=== PATIENT | female | born 1970 | race Caucasian/White ===

== ENCOUNTER 2025-03-01 01:28 | Outpatient (CLI) | payer MEDICAID, SELFPAY ==
[2025-03-01 13:52] LABS: HCT 41.2 % (36.0-46.0); HGB 13.9 g/dL (11.2-15.7); MCH 29.6 pg (27.0-33.0); MCHC 33.7 % (32.0-36.0); MCV 88 fL (80-95); MPV 9.5 fL (8.0-11.0); Platelet Count 379 10^3/uL (130-400); RBC 4.69 10^6/uL (3.93-5.22); RDW 13.7 % (11.7-14.6); RDW-SD 43.7 fL; WBC 7.36 10^3/uL (4.4-10.8)
[2025-03-01 14:27] LABS: Anion Gap 9.7 mmol/L (3-11); BUN 13 mg/dL (7-18); CO2 28.3 mmol/L (21.0-32.0); CREATININE 0.7 mg/dL (0.55-1.02); Calcium 9.4 mg/dL (8.5-10.1); Chloride 102 mmol/L (98-107); Estimated GFR 102.07 (mL/min/1.73m2); Glucose 155 mg/dL (74-106); Potassium 3.6 mmol/L (3.5-5.1); Sodium 140 mmol/L (136-145)
[2025-03-05 15:33] LABS: Fructosamine 240 mcmol/L (200 - 285)
== END 2025-03-01 01:29 | disposition home or self-care (01) ==
LOC: LBO 01:28
PROVIDERS: PCP Internal Medicine; Visit Provider Student in an Organized Health Care Education/Training Program
DX: M17.11 Unilateral primary osteoarthritis, right knee (principal); Z01.818 Encounter for other preprocedural examination; E11.9 Type 2 diabetes mellitus without complications
CPT/HCPCS: 36415; 80048; 85027; 82985

== ENCOUNTER 2025-03-01 12:05 | Outpatient (CLI) | payer MEDICAID, SELFPAY ==
--- NOTE | 2025-03-01 11:45 | DI.RAD_ITS ---
Exam(s) XR STANDING ALIGNMENT XR KNEE RT 1V EXAM: XR STANDING ALIGNMENT and XR knee RT 1 V CLINICAL HISTORY: PRE OP R TKA. TECHNIQUE: 2D digital imaging was performed. Five images were obtained. COMPARISON: CR XR KNEE COMPLETE MIN 4V BILAT-M2 from 12/20/2023 CR XR KNEE 1 OR 2V BILAT-M2 from 03/01/2024 CR XR KNEE 3V RT from 03/05/2024 FINDINGS: BONES: The hips are well maintained. In the right knee, there is marked narrowing of the medial femo ral tibial joint. There osteophytes in all 3 joint compartments, particularly the medial femoral tib ial and patellofemoral joint. There is no significant joint effusion. The tibia is slightly lateral ly subluxed relative to the distal femur. On the lateral view, there is a rounded density anterior t o the tibial plateau which may represent a loose body. In the left knee, there is moderate narrowing of the medial femoral tibial joint. Osteophytes are seen both medially and laterally. The ankles a re well maintained.There is no significant leg length discrepancy. SOFT TISSUE: Normal. IMPRESSION: Marked osteoarthritis of the knees, right greater than left. DATA REPOSITORY: RADIATION DOSE DELIVERED:
== END 2025-03-01 12:06 | disposition home or self-care (01) ==
LOC: DIORS 12:06
PROVIDERS: PCP Internal Medicine; Visit Provider Physician Assistant
DX: M17.11 Unilateral primary osteoarthritis, right knee (principal); M17.12 Unilateral primary osteoarthritis, left knee
CPT/HCPCS: 73560; 77073

== ENCOUNTER 2025-03-12 08:35 | Day surgery (SDC) | payer MEDICAID, SELFPAY ==
[2025-03-12] VITALS (21 sets, daily range): BP systolic 104–159; BP diastolic 35–92; PULSE 58–83; RESP 10–21; TEMP 36.2–36.6; O2SAT 92–98; BMI 35.5
--- NOTE | 2025-03-12 07:13 | PDOC.DSDIS_ITS ---
Date of service: 03/12/25 Discharge Plan Disposition Patient Disposition: Home Condition: Good Discharge Details Reason For Visit: Right knee DJD Attending Provider: Keyon Hgih Primary Care Provider: Adina Moya Home Meds and New Rx's Prescriptions: New celecoxib [Celebrex] 200 mg capsule 200 mg PO BID PRNQty: 60 0RF Rx Instructions: Take one tablet twice daily for pain and inflammation aspirin 81 mg tablet,delayed release (DR/EC) 81 mg PO BID 30 Days Qty: 60 0RF acetaminophen 500 mg tablet 1,000 mg PO Q8H PRN Qty: 90 0RF Rx Instructions: Take two tablets up to every 8 hours as needed for pain hydromorphone 2 mg tablet 2 mg PO Q4H PRNQty: 18 0RF Rx Instructions: Take one tablet up to every 4 hours as needed for severe postoperative pain dexamethasone 4 mg tablet 4 mg PO DAILY Qty: 2 0RF Rx Instructions: Take one tablet once daily for two days docusate sodium [Colace] 100 mg capsule 100 mg PO BID Qty: 28 0RF Continued diltiazem HCl [DILT-XR] 120 mg capsule,ext.rel 24h degradable 120 mg PO DAILY escitalopram oxalate 10 mg tablet 10 mg PO DAILY alprazolam 1 mg tablet 1 mg PO QID PRN cholecalciferol (vitamin D3) 25 mcg (1,000 unit) capsule 25 mcg PO DAILY clotrimazole 1 % cream 1 applic topical BID ferrous sulfate 325 mg (65 mg iron) tablet 325 mg PO DAILY Arnuity Ellipta 100 mcg/actuation blister with device 1 inh inhalation DAILY metformin 500 mg tablet 500 mg PO BID omeprazole 20 mg capsule,delayed release(DR/EC) 20 mg PO DAILY cyanocobalamin (vitamin B-12) 1,000 mcg capsule 1,000 mcg PO DAILY Anoro Ellipta 62.5-25 mcg/actuation blister with device 1 inh inhalation DAILY (DME) Medial Offloader Brace See Rx Instructions .Route .MEDSUPPLY Qty: 1 0RF Rx Instructions: As directed gabapentin 300 mg capsule 600 mg PO TID magnesium 250 mg tablet 500 mg PO DAILY Collagen 1500 Plus C 500 mg-800 mcg- 50 mg capsule 1 cap PO DAILY Discharge Instructions Additional Instructions: Total Knee Discharge Instructions Activity: The most important activity is to walk and to work on gentle motion (both flexion and extension). You should try to take short walks a few times a day. It is important that when resting you work on keeping the knee straight. Avoid putting a pillow behind the knee as this will encourage flexion. Work on range of motion exercises as provided by Physical Therapy. - Start outpatient physical therapy within 2 weeks. - You should wear the BRAD hose on both legs for 2 weeks. You may remove these at night. You may also use any compression sock in place of the BRAD hose. - Utilize [employer] to review exercises, see videos on exercises and obtain basic information pertaining to your surgery and your recovery. Dressing: Remove the Jasiel wrap by 2 days after your surgery and put on the BRAD stocking given to you from the hospital. Keep the surgical dressing (underneath the JASIEL wrap) in place for at least one week. After the first week it may be removed and replaced with light gauze and tape or nothing. The wound and dressing may get wet after 3 days but avoid soaking the dressing or otherwise it will need to be changed. Many people prefer covering the dressing with cling wrap (saran wrap) to minimize it from getting soaked. If it gets wet, just pat dry. If it starts to peel off then it will need to be changed. Medications: - You should take Tylenol and anti-inflammatory Celebrex as your primary pain control medications. If the Celebrex is too expensive or not covered, please call the office for another alternative (Advil/Ibuprofen or Naproxen/Aleve) - You have been prescribed a stronger pain medication Hydromorphone for breakthrough pain, take as needed as prescribed. - You take a stomach acid reduction agent Omeprazole at baseline continue with this medication to help reduce stomach acid and reflux. - You will be taking Aspirin 81mg twice a day for DVT prevention unless instructed otherwise. - You have also been prescribed Decadron to take to control post-operative nausea and pain. You will start this tomorrow. - If you have constipation you should take Colace (which has been prescribed) or Miralax (which is available [id number]). It takes most people 3-4 days to have a bowel movement. Follow-up: 2 weeks If you have any acute concerns or questions, please do not hesitate to contact the office at [phone]. You may contact Dr. High with any questions after hours through the hospital at [phone] or on his cell phone at [phone]. Stand Alone Forms: Anesthesia Discharge Inst., [place].Nerve Block Instructions, Josefina Glynn ([facility]) Referrals: Keyon High MD [ [facility] STAFF PHYSICIAN] - 03/25/25 11:00 am Equipment/Supplies: Walker Activity:: Elevate Remove Dressings/Wound Care:: Do Not Remove Shower/Bathe:: Cover Diet:: As Tolerated Discharge Orders Discharge Orders: Discharge Order (Routine); Ordered 03/12/25 Ordered By: Felipa Sands
--- NOTE | 2025-03-12 09:06 | W.ANESPRE ---
General Info Date of Service Date Performed: 03/12/25 Height: 5 ft 5.5 in Weight: 98.43 kg Body Mass Index (BMI): 35.5 Surgical Procedure: Operation Date: 03/12/25 10:40 Proposed Procedure Side Surgeon p Knee Total Arthroplasty Right Keyon High MD Meds Allergies and Home Medications Allergies Allergy/AdvReac Type Severity Reaction Status Date / Time oxycodone AdvReac Intermediate Unknown Verified 03/12/25 09:13 Home Medication ?Medication ?Instructions ?Recorded alprazolam 1 mg tablet 1 mg PO QID PRN 01/16/24 cholecalciferol (vitamin D3) 25 25 mcg PO DAILY 01/16/24 mcg (1,000 unit) capsule clotrimazole 1 % topical cream 1 applic topical BID 01/16/24 cyanocobalamin (vitamin B-12) 1,000 mcg PO DAILY 01/16/24 1,000 mcg capsule ferrous sulfate 325 mg (65 mg 325 mg PO DAILY 01/16/24 iron) tablet fluticasone furoate 100 1 inh inhalation DAILY 01/16/24 mcg/actuation blister powder for inhalation (Arnuity Ellipta) metformin 500 mg tablet 500 mg PO BID 01/16/24 omeprazole 20 mg capsule,delayed 20 mg PO DAILY 01/16/24 release umeclidinium 62.5 mcg-vilanterol 1 inh inhalation DAILY 01/16/24 25 mcg/actuation powdr for inhalation (Anoro Ellipta) diltiazem HCl 120 mg 120 mg PO DAILY 01/19/24 capsule,extended release 24 hr, controlled (DILT-XR) Medial Offloader Brace #1 ea 01/23/25 escitalopram oxalate 10 mg tablet 10 mg PO DAILY 03/01/25 gabapentin 300 mg capsule 600 mg PO TID 03/01/25 magnesium 250 mg tablet 500 mg PO DAILY 03/01/25 collagen,hydrolysate 500 mg-biotin 1 cap PO DAILY 03/11/25 800 mcg-ascorbic acid 50 mg capsule (Collagen 1500 Plus C) acetaminophen 500 mg tablet 1,000 mg (2 x 500 mg) PO Q8H PRN 03/12/25 pain #90 tabs aspirin 81 mg tablet,delayed 81 mg PO BID 30 days #60 tabs 03/12/25 release celecoxib 200 mg capsule (Celebrex) 200 mg PO BID PRN #60 caps 03/12/25 dexamethasone 4 mg tablet 4 mg PO DAILY #2 tabs 03/12/25 docusate sodium 100 mg capsule 100 mg PO BID #28 caps 03/12/25 (Colace) hydromorphone 2 mg tablet 2 mg PO Q4H PRN #18 tabs 03/12/25 Current Visit Medications: Current Medications Generic Name Dose Route Start Last Admin Trade Name Freq PRN Reason Stop Dose Admin Acetaminophen 1,000 mg 03/12/25 06:00 Acetaminophen 500 Mg Tab PO 03/12/25 23:59 PREOP PENELOPE Celecoxib 400 mg 03/12/25 06:00 Celecoxib 200 Mg Cap PO 03/12/25 23:59 PREOP PENELOPE Gabapentin 300 mg 03/12/25 06:00 Gabapentin 300 Mg Cap PO 03/12/25 23:59 PREOP PENELOPE Hydromorphone HCl 0.5 mg 03/12/25 07:11 Hydromorphone 2 Mg/Ml Syr IVP 04/11/25 07:10 Q2H PRN PRN Ringer's Solution 1,000 mls @ 80 mls/hr 03/12/25 06:00 IV 03/12/25 23:59 INFUSION PENELOPE Cefazolin Sodium/Dextrose 2 gm in 50 mls @ 100 mls/hr 03/12/25 06:00 Ancef Duplex IVPB 03/12/25 23:59 PREOP PENELOPE Tranexamic Acid/Sodium Chloride 1,000 mg in 100 mls @ 600 mls/hr 03/12/25 06:00 IVPB 03/12/25 23:59 PREOP PENELOPE Cefazolin Sodium/Dextrose 1 gm in 50 mls @ 100 mls/hr 03/12/25 08:00 Ancef Duplex IVPB 04/11/25 07:59 Q8H PENELOPE IV Miscellaneous Supplies 1 each 03/12/25 06:00 Iv Access IV 03/12/25 23:59 DIRECTED PENELOPE Sodium Chloride 0 ml 03/12/25 06:00 Normal Saline Flush 10 Ml Syr IV 03/12/25 23:59 PRN PRN Sodium Chloride 0 ml 03/12/25 06:00 Normal Saline 10 Ml Vial IJ 03/12/25 23:59 DIRECTED PRN Sterile Water 0 ml 03/12/25 06:00 Water,Injection,Sterile 10 Ml Vial IJ 03/12/25 23:59 DIRECTED PRN Tranexamic Acid 1,300 mg 03/12/25 07:11 Tranexamic Acid 650 Mg Tab PO 04/11/25 07:10 ONCE PRN postoperative PFSH Active Problems Active Problems: Problem Status Onset Code History of total right knee replacement Acute 03/12/25 Z96.651 Osteoarthritis of right knee Acute M17.11 Asthma Chronic J45.909 Type 2 diabetes mellitus Acute E11.9 Skin lesion of chest wall Acute L98.9 Sleep apnea, obstructive Chronic G47.33 Obesity Chronic E66.9 Nocturnal hypoxemia Acute G47.34 Neck pain Acute M54.2 Migraine Chronic G43.909 Marijuana use Acute F12.90 Joint pain of ankle and foot Acute M25.579 Isthmic spondylolisthesis Acute M43.10 Insomnia Acute G47.00 Herpes simplex Acute B00.9 Generalized anxiety disorder Acute F41.1 Gastroesophageal reflux disease with hiatal hernia Acute K21.9, K44.9 Dyspnea Acute R06.00 Chronic diarrhea Acute K52.9 Backache Acute M54.9 ADHD Acute F90.9 Anxiety disorder Acute F41.9 Allergy to nuts Acute Z91.018 Abnormal weight gain Acute R63.5 Medical History Medical History (Updated 03/12/25 @ 09:45 by Venkat Sarah CRNA) Surgical History Surgical History Hx of section 11/22/06 History of esophagogastroduodenoscopy (EGD) 11/02/21,10/20/20 History of colonoscopy 11/02/21 Tobacco Smoking/Tobacco Use Status: Former Tobacco Use Alcohol Alcohol Intake: current Alcohol intake frequency: a few times a month Substance Use Substance use: Never Substance use type: former substance user and marijuana Vital Signs and Lab Results Vital Signs Most Recent Vital Signs in EMR: Most Recent Vital Signs Temp Pulse Resp BP Pulse Ox 36.5 C 76 16 135/83 98 03/12/25 08:46 03/12/25 08:46 03/12/25 08:46 03/12/25 08:46 03/12/25 08:46 Lab Results Blood Type / Crossmatch: No Data to Display Complete Blood Count: White Blood Count 7.36 10^3/uL (4.4-10.8) 03/01/25 13:37 Red Blood Count 4.69 10^6/uL (3.93-5.22) 03/01/25 13:37 Hemoglobin 13.9 g/dL (11.2-15.7) 03/01/25 13:37 Hematocrit 41.2 % (36.0-46.0) 03/01/25 13:37 Platelet Count 379 10^3/uL (130-400) 03/01/25 13:37 Complete Metabolic Panel: Sodium 140 mmol/L (136-145) 03/01/25 13:37 Potassium 3.6 mmol/L (3.5-5.1) 03/01/25 13:37 Chloride 102 mmol/L (98-107) 03/01/25 13:37 Carbon Dioxide 28.3 mmol/L (21.0-32.0) 03/01/25 13:37 BUN 13 mg/dL (7-18) 03/01/25 13:37 Creatinine 0.7 mg/dL (0.55-1.02) 03/01/25 13:37 Est GFR (CKD-EPI 2020) 102.07 (mL/min/1.73m2) 03/01/25 13:37 Calcium 9.4 mg/dL (8.5-10.1) 03/01/25 13:37 Glucose 155 mg/dL (74-106) H 03/01/25 13:37 Liver Function Panel: No Data to Display Coagulation Panel: No Data to Display Cardiac Panel: No Data to Display Arterial Blood Gas: No Data to Display Venous Blood Gas: No Data to Display Pancreas Panel: No Data to Display Thyroid Panel: No Data to Display Infectious Disease: No Data to Display Blood Cultures: No Data to Display Toxicology Panel: No Data to Display Anesthesia Assessment and Plan Anesthesia History Personal History: No History of Anesthesia Complications Family History: No Family History of Anesthesia Complications Exercise Tolerance Exercise Tolerance: Metabolic Equivalents>4 Pertinent Negatives Pertinent Negatives: No Symptoms of GERD, No Major Cardiovascular Symptoms or Complaints and No History of CVA/TIA Cardiac & Pulmonary Exam Cardiac Exam: Normal S1/S2 Heart Sounds Pulmonary Exam: Clear Bilateral Breath Sounds Implantable Cardiac Device Does patient have a Pacemaker or an ICD?: No Airway Exam Known Difficult Airway: No Mallampati Class: 2 Mouth Opening: Normal (> 3cm) Thyromental Distance: Greater than 3 cm Neck Range of Motion: Full ROM Neck Circumference: Normal Teeth Condition: Normal Dentition ASA Classification ASA Score: ASA 2 Emergency Case?: No NPO Status NPO Status: NPO Clears >2 hours, Solids >8 hours Anesthesia Plan Resuscitation Status: Full Code Anesthesia Technique: Spinal Anesthesia Airway Planned: Natural Airway Pain Management: Surgeon and patient request nerve block Monitors Used: Standard Monitors
[2025-03-12] MEDS: Gabapentin 300 MG CAP PO (09:22)
[2025-03-12] MEDS: Celecoxib 200 MG CAP 400 MG PO (09:22)
[2025-03-12] MEDS: ceFAZolin 2 GM/50 ML BAG IVPB (10:29)
[2025-03-12] MEDS: Lactated Ringers 1,000 ML 80 ML IV (10:29)
[2025-03-12] MEDS: TRANEXAMIC ACID/SOD. CHL. 1,000 MG/100 ML BAG 600 MG IVPB (10:40)
--- NOTE | 2025-03-12 10:43 | W.PM.OP ---
Operative Note Operative Note PRE-OP DIAGNOSIS: Right Knee Osteoarthritis POST-OP DIAGNOSIS: same PROCEDURE: Right Total Knee Replacement SURGEON: Keyno High SHAPER SET UP OPERATOR: Felipa Sands ANESTHESIA TYPE: Spinal Refer to Anesthesia Record ESTIMATED BLOOD LOSS: 100 PATHOLOGY: none sent TOURNIQUET TIME: 0 COMPLICATIONS: None Patient was transported to: PACU Patient's condition: stable Implants: 1. Depuy Attune Cementless Cruciate Retaining Femoral Component, Size 5 2. Depuy Attune Cementless Fixed Bearing Tibial Component, Size 4 3. Depuy Attune 5x7mm CR/FB Poly Indications: I have seen Bere in clinic for symptoms of knee arthritis, confirmed with radiographic findings. [NAME] has exhausted nonoperative methods and was having significant limitations in daily function and desired better function and less pain. I discussed the technical details of a knee replacement. I explained the risks of the procedure to include, but not limited to, bleeding, infection, pain, stiffness, fracture, damage to nerves and vessels, damage to muscles and tendons, loosening, need for repeat procedure, blood clot and cardiopulmonary demise. Despite these risks, [NAME] elected to proceed. Findings: There was significant signs of arthritis throughout the knee. Procedure Description: Bere was greeted in the preoperative holding area where the correct side was identified and marked. The consent was reviewed with the patient and signed. The history and physical was updated. All questions were answered. Preoperative medications were administered: Acetaminophen 1000mg, Celebrex 400mg, and Gabapentin 300mg. An adductor canal block was then administered by the anesthesia team in the [facility]. She was taken back to the operating room. A spinal anesthestic was then administered. The patient was placed into the supine position on the operating room table. Posts were placed for positioning during the procedure. All bony prominences were well padded. Prophylactic antibiotics in the form of Cefazolin were administered. 1g of Tranxemic Acid was given intravenously within 30 minutes of incision. The left leg was then prepped with Chloraprep and draped in a standard fashion with impervious stockinette. A second prep with Chloraprep was performed prior to application of Iodine impregnated skin protection. A timeout to confirm correct identity, side and site, procedure, allergies, anesthesia, and medical concerns was performed. With the knee in some flexion, a midline incision was made overlying the knee. Full thickness skin flaps were raised once the extensor mechanism was encountered. These were raised medially and laterally. Any bleeding was controlled with electrocautery. Once the extensor mechanism was fully exposed, a medial parapatellar arthrotomy was performed in a flexed position. All bleeding from the arthrotomy and the geniculate arteries was coagulated. A medial subperiosteal peel was performed with electrocautery to the midcoronal plane. The fat pad was removed while keeping the patellar tendon protected. The anterior distal femur synovium was removed for later visualization. The ACL and PCL were resected and the anterior horn of the lateral meniscus was transected. The knee was then flexed with the patella everted. Large osteophytes from the tibia were removed. Large osteophytes from the femur were removed. Using a step drill, and based on preoperative templating, the femoral canal was entered. This was done with a step drill without any difficulty. The intramedullary distal femoral cut guide was inserted, set to a 5 degree valgus cut and 9mm cut thickness. The distal femoral cut guide was then held in position and pinned. With the soft tissues protected, the distal cut was performed. This was passed over a few times to ensure a planar cut. I then turned attention to the tibia. The extramedullary guide was placed onto the leg. The distal aspect was slid medial to adjust for position of center of ankle and stay in line with shaft of the tibia. Approximately 3-5 degrees of posterior slope was kept in the proximal cutting guide. The center of the guide was aligned with the PCL. The stylus was used to assess cut thickness. The medial side, most involved side, was set for a 4mm cut. This was then held in position and pinned into place with 2 additional pins and a cross pin for stability. The medial and lateral collateral ligaments were protected and the cut was performed. With this completed, it was assessed and noted to be of appropriate dimensions. The guide was removed. A spacer block was inserted and the knee was brought into extension. The 6mm spacer block provided full extension, without hyperextension and with stability of both the medial and lateral collateral ligaments was assessed. The pins from the femur and the tibia were then removed. The distal femur was then sized. The anterior stylus was placed onto the lateral ridge of the anterior femur. This indicated a size 5 femur. The external rotation of the guide was adjusted to 3 degrees to match the epicondylar axis, perpendicular to Luebbering?s line. The 4-in-1 cutting guide was the placed. The posterior medial femur cut was evaluated and appeared of good thickness. The spacer block was inserted underneath the cutting guide and stability was confirmed in 90 degrees of flexion. An heber wing was used to confirm appropriate position of the anterior cut to avoid notching. This cutting guide was ensured to be flush on the cut surface and then pinned into place with headed pins. While protecting the soft tissues, quad tendon, and collateral ligaments, the anterior and posterior cuts were performed with a saw. The central two pins were removed and the posterior and anterior chamfers were cut next. The notch-cutting guide was placed. This was pinned to lateralize the femoral component as much as possible while keeping it flush on the cut surface. This was then pinned into position. A reciprocating saw was used to make the notch cut. A rasp smoothed the cut surfaces. The medial and lateral menisci were removed. A trial femoral component was then inserted, impacted down to the cut surfaces, and the lug holes were drilled. A provisional trial tibial component was placed and the knee was brought through range of motion. There was no significant instability. The polyethylene was trialed until there was good flexion and extension with excellent stability to the medial and lateral collaterals. The patella was tracking without thumbs. A size 7mm polyethylene component provided the best range of motion and stability with less than 2mm gapping with medial and lateral stress and full extension without significant hyperextension. The tibial cut surface was fully exposed. The tibia was then sized as a 4. The tibia had been previously marked during trialing to correspond to the center of the tibial component to help with rotation. The trial was aligned to this antonella, approximately rotated to the medial 1/3rd of the tibial tubercle. The trial was pinned into place. The tibia was prepared with a reamer and a keel punch and lug holes. The trial components were removed. The final components were opened on the back table. The periosteal and capsular tissues, especially posteriorly, around the knee were then systematically injected with a periarticular cocktail consisting of 246mg of Ropivacaine, 0.5mg of Epinephrine, 0.08mg of Clonidine, and 30mg of Ketorolac, diluted to 100cc. On the back table, with the implants opened. The cementless knee components were placed. Starting with the tibial component, the tibia was subluxed anteriorly and the lug holes of the component were lined up. The tibia was then impacted with an impactor and mallet until the tibial component was in contact with the tibia. The final polyethylene component was inserted. Then, the femoral component was inserted. The lug holes were aligned and the component was impacted into position. The knee was irrigated with Surgiphor Betadine solution. This was allowed to sit in the knee for 3 minutes and then it was irrigated out with saline. I then also performed a synovectomy around the patella removing any osteophytes from the periphery of the patella. A subtle lateral facetectomy was also performed. The patella was tracking with a no-thumbs technique. The capsule was then reapproximated with a No. 1 Vicryl at multiple locations. The capsule was finally closed with a No. 2 Stratafix, barbed suture. Deep tissues were then reapproximated with 0 Vicryl and 2-0 Vicryl. The skin was closed with a running 3-0 Monocryl in a subcuticular fashion. This was reinforced with skin glue. A Mepilex silver dressing was applied along with a [id number] HAZEL wrap. A CryoCuff was applied. Bere was transferred to the hospital bed without difficulty an suffering no apparent complication. She has a good prognosis. Physical therapy will start today and without restrictions, weight-bearing as tolerated. Aspirin 81mg BID will be used for DVT prophylaxis. Date of Procedure: 03/12/25
--- NOTE | 2025-03-12 11:04 | W.ANESNERVE ---
Nerve Block Single Injection Procedure Date and Time Date Performed: 03/12/25 Procedure Start: 10:19 Location Where Procedure Performed Procedure Location: Day Surgery Unit Reason Performed: Postoperative Analgesia Requesting Provider: Keyon High Timeout Performed Timeout Performed: Yes Monitoring Used ECG, Blood Pressure, SpO2 and See EMR for corresponding vital signs Sterility Sterility: Hand Hygiene, Surgical Cap, Surgical Mask, Sterile Gloves and Chlorhexidine Sedation Given During Procedure Sedation Given (Indicate Dose Given): Versed IV Dose:: 2mg Patient Mental Status Patient Mental Status: Awake Nerve Block 1st Nerve Block: Laterality: Right Block Type: Adductor Canal Ultrasound Image Saved?: Yes Needle / Catheter Used: 100mm SonoPlex II Local Anesthetic Bolus (Indicate Dose Given): Lidocaine used for local infiltration of skin, Injected in 3-5ml increments after negative blood aspiration, Bupivacaine 0.25% Dose:: 10ml and Exparel Dose:: 10ml Additives (Indicate Dose Given): None Ultrasound: Sterile probe cover and gel used Nerve Stimulator: Not Used Paresthesia: None Procedure Tolerated: No Complications and Patient tolerated well Procedure Outcome: Successful Performed By: Venkat Sarah
[2025-03-12] MEDS: HYDROmorphone 2 MG TAB PO (13:48)
[2025-03-12] MEDS: Tranexamic Acid 650 MG TAB 1300 MG PO (13:49)
--- NOTE | 2025-03-12 13:50 | IN_ITS ---
PT Notes Visit Reasons: Right knee DJD Physical Therapy Day Surgery Initial Evaluation Date: 03/12/2025 Referring Doctor: JANINE Eastman PT Orders: PT CONSULT: S/p Ortho surgery Precautions: WBAT through right LE with AD. Patient Profile/Admitting Diagnosis: Bere is a 54-year-old female with degenerative joint disease of the right knee and is status post right total knee arthroplasty on postoperative day 0. PMHX: All Active Problems (Updated 06/18/24 @ 15:56 by JANINE Montesinos) Osteoarthritis of right knee (Acute) Asthma (Chronic) Type 2 diabetes mellitus (Acute) Skin lesion of chest wall (Acute) Sleep apnea, obstructive (Chronic) Obesity (Chronic) Nocturnal hypoxemia (Acute) Neck pain (Acute) Migraine (Chronic) Marijuana use (Acute) Joint pain of ankle and foot (Acute) Isthmic spondylolisthesis (Acute) Insomnia (Acute) Herpes simplex (Acute) Generalized anxiety disorder (Acute) Gastroesophageal reflux disease with hiatal hernia (Acute) Dyspnea (Acute) Chronic diarrhea (Acute) Backache (Acute) ADHD (Acute) Anxiety disorder (Acute) Allergy to nuts (Acute) Abnormal weight gain (Acute) Medical History (Updated 06/18/24 @ 15:56 by JANINE Montesinos) Histroy of Surgical History (Updated 01/16/24 @ 08:27 by Valerie Rueda) Hx of section 11/22/06 History of esophagogastroduodenoscopy (EGD) 11/02/21,10/20/20 History of colonoscopy 11/02/21 Social History/Home Situation: Lives alone on the third floor of an apartment building. Independent with all aspects of ADLs prior to surgery. Will live at SONIA's house for the next two weeks and will have support of SONIA Nickerson as she recovers home. Equipment Owned/DME: None Subjective: Needed to void urine when PT came in. Was initially impulsive but with redirection/instrcution was able to safely complete mobility tasks. Denied headche, chest pain, and lightheadedness throughout session. Objective: General Observation: Jasiel wraps to right LE. Cryo/Cuff to right knee. TEDS to left leg and foot. SO Krishan present in room throughout. Mental Status: A and O x 4 Pain: 2-3/10 at rest, 4-5/10 with weight bearing ROM: Right Lower Extremity: Hip flexion WFL. Hip abduction WFL. Knee flexion 10 degrees to 100 knee extension -10 degrees. Degrees. Ankle dorsiflexion WFL. Ankle plantarflexion WFL. Left Lower Extremity: Hip flexion WFL. Hip abduction WFL. Knee flexion WFL. Ankle dorsiflexion WFL. Ankle plantarflexion WFL. Strength: Right Lower Extremity: Hip flexors 4-/5. Hip abductors 4-/5. Knee flexors 3-/5. Knee extensors 3-/5. Ankle dorsiflexors 5/5. Ankle plantarflexors 5/5. Left Lower Extremity:Hip flexors 5/5. Hip abductors 5/5. Knee flexors 5/5. Knee extensors 5/5. Ankle dorsiflexors 5/5. Ankle plantarflexors 5/5. Sensation: Intact as to pain and light pressure in B LE Bed Mobility/Transfers: Minimal verbal cueing provided for use of B hands as needed for support, movement sequence, AD management, and posture to reduce fall risk and minimize pain report Sit to stand stand by assist with FWW Stand to sit stand by assist with FWW Bed to chair stand by assist with FWW Gait: Facilitate safe and correct performance of patient covering a distance of 100 feet using front with reciprocal heel toe swing through gait pattern requiring only standby assist and minimal verbal cueing for correct gait pattern posture, and AD management to minimize pain reported reduce fall risk. Stairs: Guided patient with safe and correct negotiation of 2 x 6 inch steps of 3 x 4 inch steps with bilateral rails with step to gait pattern requiring contact- guard assist while holding bilateral rails with verbal cueing provided for mehran ect sequence, placement, and posture to minimize pain reported reduce fall risk. Follow-up Balance: Static Sitting: Normal Dynamic Sitting: Good Static Standing: Fair Dynamic Standing: Fair Special Tests: Mobility Limitations Standardized Measure [facility] AM-PAC 6 clicks Basic Mobility Inpatient Short Form: Raw Score: 23 CMS Score: 11% deficit Informed Consent/Education: Patient instructed in purpose of PT consult. Packet containing TKA exercise protocol has been given to patient. Education and training on initial set of exercises that can be done at home have been completed with patient. Trained patient with correct performance of exercises below to maximize motor control, joint flexibility, soft tissue extensibility of the R knee musculature: Access Code: [email or web address] URL: [email or web address] Date: 03/12/2025 Prepared by: Talita Pacheco Exercises - Supine Quad Set - 1 x daily - 7 x weekly - 1 sets - 10 reps - 5 hold - Supine Heel Slide - 1 x daily - 7 x weekly - 1 sets - 10 reps - 5 hold - Supine Ankle Pumps - 1 x daily - 7 x weekly - 1 sets - 10 reps - 5 hold - Small Range Straight Leg Raise - 1 x daily - 7 x weekly - 1 sets - 10 reps - 5 hold - Seated March - 1 x daily - 7 x weekly - 1 sets - 10 reps - 5 hold Assessment: Patient requires the use of a front wheeled walker for all mobility ADL performance to maximize independence and reduce fall risk. Patient presents with clinical signs and symptoms consistent with current/admitting diagnoses that have resulted to mobility limitations, gait instability, generalized weakness, and impairment of motor control as demonstrated by the following impairment level findings: 1. Decreased strength to R knee major muscle groups 2. Impaired standing balance 3. Limitation of joint range of motion in R knee Impairments are contributing to the following functional limitations: 1. Inability to safely ambulate without assistive device 2. Increase completion time for mobility ADL performance 3. Increased fall risk Patient is assessed as a 46184 moderate complexity based on the following: History: 54-year-old female with impairment level findings, functional limitations, and past medical history as indicated above Examination: Demonstrable impairment in strength, balance, and mobility level with underlying impairments and functional limitations as documented above Presentation: Evolving Decision Makin moderate complexity Goals: N/A. PT evaluation and 1-2 treatment sessions only for functional mobility training using recommended AD and for HEP instruction. Plan of Care/Treatment Plan: N/A. PT evaluation and 1-2 treatment session only for functional mobility training using recommended AD and for HEP instruction. DISCHARGE RECOMMENDATIONS: [] TREATMENT CODE/TIME: 52063 x 20 minutes for 1 unit, 44692 x 14 minutes for 1 unit (13;50-14:24). Thank you for the opportunity to participate in the care of this patient. Please sign an return this page within 30 days if you agree with the above POC. Thank you! Physician Signature Date [facility] Talita Pacheco PT, DPT, CLT [facility] [place], [place]
--- NOTE | 2025-03-12 14:13 | W.ANESPOSTOP ---
Postoperative Evaluation Date, Time and Location Date Performed: 03/12/25 Time Performed: 14:14 Patient Location: Day Surgery Unit Vital Signs Most Recent Imported Vital Signs: Most Recent Vital Signs Temp Pulse Resp BP Pulse Ox 36.6 C 83 16 142/92 H 96 03/12/25 13:27 03/12/25 13:27 03/12/25 13:27 03/12/25 13:27 03/12/25 13:27 Pain Score Most Recent Pain Score: Most Recent Pain Score Pain Level 2 03/12/25 13:27 Assessment Mental Status: Awake (Alert & Oriented to Patient Baseline) Airway and Respiratory Function: Patent airway with normal (patient baseline) respiratory exam Cardiovascular Function: Hemodynamically Stable Hydration Status: Adequately Hydrated Nausea & Vomiting: No Nausea or Vomiting Pain: Pain is tolerable per patient Peripheral Nerve Block: Regional nerve block not resolved at time of post operative discharge
== END 2025-03-12 15:25 | disposition home or self-care (01) ==
LOC: SUR 08:38
PROVIDERS: PCP Internal Medicine; Visit Provider Student in an Organized Health Care Education/Training Program
PROC: (CPT 27447; principal; 2025-03-12 10:30)
DX: M17.11 Unilateral primary osteoarthritis, right knee (principal); G89.18 Other acute postprocedural pain
CPT/HCPCS: 27447; 64447; 81025; 97162; 97530; C1776; J0665; J0666; J0690; J1100; J2250; J2401; J2405; J2704

== ENCOUNTER 2025-03-25 11:07 | Outpatient (CLI) | payer MEDICAID, SELFPAY ==
--- NOTE | 2025-03-25 10:45 | DI.RAD_ITS ---
Exam(s) XR STANDING ALIGNMENT XR KNEE RT 1V EXAM: XR STANDING ALIGNMENT and XR knee RT 1 V CLINICAL HISTORY: 1ST POST OP S/P RTKA. TECHNIQUE: 2D digital imaging was performed. Five images were obtained. COMPARISON: CR XR STANDING ALIGNMENT from 03/01/2025 CR XR KNEE RT 1V from 03/01/2025 FINDINGS: BONES: The hips are well maintained. The patient is now status post right total knee arthroplasty. The orthopedic hardware appears in good position. No suspicious lucencies are seen around the orthopedic hardware. In the left knee, there is moderate narrowing of the medial femoral tibial joint. Osteophytes are seen both medially and laterally. The ankles are well maintained.There is no significant leg length discrepancy. SOFT TISSUE: Normal. IMPRESSION: Interval placement of a right total knee arthroplasty. DATA REPOSITORY: RADIATION DOSE DELIVERED:
== END 2025-03-25 11:08 | disposition home or self-care (01) ==
LOC: DIORS 11:07
PROVIDERS: PCP Internal Medicine; Referring Provider Internal Medicine; Visit Provider Student in an Organized Health Care Education/Training Program
DX: Z96.651 Presence of right artificial knee joint (principal)
CPT/HCPCS: 73560; 77073

== ENCOUNTER 2025-06-17 16:04 | Outpatient (CLI) | payer MEDICAID, SELFPAY ==
--- NOTE | 2025-06-17 15:15 | DI.RAD_ITS ---
Exam(s) XR KNEE LT 4V AP,LAT,JERALD,PAT EXAM: XR KNEE LT 4V AP,LAT,JERALD,PAT CLINICAL HISTORY: left knee djd. TECHNIQUE: 2D digital imaging was performed. Three views. COMPARISON: CR XR KNEE RT 1V from 03/25/2025 FINDINGS: BONES: No acute fracture is present. No bony destructive lesion is seen. JOINTS: There is severe narrowing of the lateral patellofemoral joint. There is prominent periarticular spurring as well as lateral patellar tilt and subluxation. There is mild narrowing of the medial femoral tibial joint space. There is spurring from the femoral condyles and tibial plateaus. No joint effusion is seen. SOFT TISSUE: Normal. IMPRESSION: Severe degenerative changes of the lateral patellofemoral joint. DATA REPOSITORY: RADIATION DOSE DELIVERED:
== END 2025-06-17 16:05 | disposition home or self-care (01) ==
LOC: DIORS 16:04
PROVIDERS: PCP Internal Medicine; Visit Provider Physician Assistant
DX: M17.12 Unilateral primary osteoarthritis, left knee (principal); M22.2X2 Patellofemoral disorders, left knee
CPT/HCPCS: 73564